=== PATIENT | female | born 1980 | race Caucasian/White ===

== ENCOUNTER 2023-10-27 08:27 | Outpatient (REF) | payer OTHER, SELFPAY ==
--- NOTE | 2023-10-27 08:33 | EMG_ITS ---
Chief complaint: Hand paresthesias left worse than right hand Reason for referral: Evaluate for Carpal Tunnel Syndrome Referred by: David LOUIE Procedure done: Bilateral upper extremities NCS/EMG Precautions and/or limitations: None The limb temperature was monitored continuously and remained between 32-36 degrees C during the performance of the NCS. Nerve Conduction Studies Anti Sensory Summary Table ?Stim Site NR Onset (ms) Norm Onset (ms) Peak (ms) Norm Peak (ms) O-P Amp (?V) Norm O-P Amp Site1 Site2 Delta-0 (ms) Dist (cm) Jair (m/s) Norm Jair (m/s) Left Median Anti Sensory (2nd Digit) Wrist ? 2.7 3.4 <3.6 58.3 >10 Wrist 2nd Digit 2.7 14.0 52 Right Median Anti Sensory (2nd Digit) Wrist ? 2.2 3.5 <3.6 42.5 >10 Wrist 2nd Digit 2.2 14.0 64 Left Ulnar Anti Sensory (5th Digit) Wrist ? 2.4 3.1 <3.7 40.8 >15.0 Wrist 5th Digit 2.4 14.0 58 Right Ulnar Anti Sensory (5th Digit) Wrist ? 2.2 2.9 <3.7 19.1 >15.0 Wrist 5th Digit 2.2 14.0 64 Motor Summary Table ?Stim Site NR Onset (ms) Norm Onset (ms) O-P Amp (mV) Norm O-P Amp iAmp (mV) Amp (1st) (%) Site1 Site2 Delta-0 (ms) Dist (cm) Jair (m/s) Norm Jair (m/s) Left Median Motor (Abd Poll Brev) Wrist ? 3.5 <3.9 9.3 >4.5 11.3 100.0 Elbow Wrist 3.8 19.0 50 >45 Elbow ? 7.3 8.6 10.3 92.5 Right Median Motor (Abd Poll Brev) Wrist ? 3.4 <3.9 6.7 >4.5 8.0 100.0 Elbow Wrist 3.8 19.0 50 >45 Elbow ? 7.2 6.0 7.1 89.6 Left Ulnar Motor (Abd Dig Minimi) Wrist ? 2.7 <3.0 7.5 >5 8.8 100.0 B Elbow Wrist 2.5 18.0 72 >45 B Elbow ? 5.2 6.8 8.2 90.7 A Elbow B Elbow 1.4 10.0 71 >45 A Elbow ? 6.6 6.7 7.9 89.3 Right Ulnar Motor (Abd Dig Minimi) Wrist ? 2.7 <3.0 9.8 >5 12.0 100.0 B Elbow Wrist 2.9 17.5 60 >45 B Elbow ? 5.6 8.6 10.5 87.8 A Elbow B Elbow 1.4 10.0 71 >45 A Elbow ? 7.0 8.6 10.4 87.8 Comparison Summary Table ?Stim Site NR Peak (ms) Norm Peak (ms) P-T Amp (?V) Site1 Site2 Delta-P (ms) Norm Delta (ms) Left Median/Radial Dig I Comparison (Digit 1 - 10cm) Median ? 2.9 <2.9 83.7 Median Radial 0.1 Radial ? 2.8 <2.8 21.8 EMG ?Side Muscle Nerve Root Ins Act Fibs Psw Amp Dur Poly Recrt Int Pat Comment Right 1stDorInt Ulnar C8-T1 Nml Nml Nml Nml Nml 0 Nml Complete Right FlexCarRad Median C6-7 Nml Nml Nml Nml Nml 0 Nml Complete Right Biceps Musculocut C5-6 Nml Nml Nml Nml Nml 0 Nml Complete Right Triceps Radial C6-7-8 Nml Nml Nml Nml Nml 0 Nml Complete Right Deltoid Axillary C5-6 Nml Nml Nml Nml Nml 0 Nml Complete Left 1stDorInt Ulnar C8-T1 Nml Nml Nml Nml Nml 0 Nml Complete Left FlexCarRad Median C6-7 Nml Nml Nml Nml Nml 0 Nml Complete Left Biceps Musculocut C5-6 Nml Nml Nml Nml Nml 0 Nml Complete Left Triceps Radial C6-7-8 Nml Nml Nml Nml Nml 0 Nml Complete Left Deltoid Axillary C5-6 Nml Nml Nml Nml Nml 0 Nml Complete FINDINGS: All motor and sensory nerves tested showed normal latencies, amplitudes and conduction velocities. Concentric needle EMG was performed in selected muscles of the bilateral upper extremities. Study did not reveal signs of electric abnormalities as shown in the table below. IMPRESSION: 1. This is a normal study. 2. There is no electrodiagnostic evidence for median neuropathy, ulnar neuropathy, brachial plexopathy, or cervical radiculopathy. Thank you for your kind referral. Tiffany Manjarrez MD, VANE Board Certified, [place] [employer] (ABPMR) Board Certified, [place] [employer] Electro[employer] (ABEM) CODIN [id number] x 2 MTDD
== END 2023-10-27 08:28 | disposition home or self-care (01) ==
LOC: HO.NEURO 08:27
PROVIDERS: Visit Provider Physician Assistant
DX: G56.03 Carpal tunnel syndrome, bilateral upper limbs (principal)
CPT/HCPCS: 95886; 95911

== ENCOUNTER → 2023-10-27 08:33 | Outpatient (BNV) | payer OTHER, SELFPAY | PROVIDERS: Visit Provider Physical Medicine & Rehabilitation | DX: R20.2 Paresthesia of skin (principal) | CPT/HCPCS: 95886; 95911 ==